=== PATIENT | female | born 1980 | race Caucasian/White ===

== ENCOUNTER 2021-08-11 08:26 | Day surgery (SDC) | payer OTHER ==
[~2021-08-11] VITALS: Ht 165.1 cm; Wt 124.8 kg
[~2021-08-11 08:26] MED LIST: ASPI-1450 PO; CHOL-35 PO; FOLI-130 PO; METH2.5 PO; METO-391 PO; OMEP20CA12 PO; PRED-549 PO; SODIUM CHLORIDE 0.9% 1,000 ML IV ONE
[2021-08-11] MEDS ORDERED: DIAZEPAM 5 MG TABLET PO ONE (09:00)
[2021-08-11] MEDS ORDERED: DiphenhydrAMINE HCL 50 MG CAPSULE PO ONE (09:00)
[2021-08-11] MEDS ORDERED: ASPIRIN 81 MG CHEWABLE TABLET PO ONE (09:00)
[2021-08-11] MEDS ORDERED: SODIUM CHLORIDE 0.9% 1,000 ML ONE (09:44)
[2021-08-11] MEDS ORDERED: ASPIRIN 81 MG CHEWABLE TABLET ONE (10:23)
[2021-08-11] MEDS ORDERED: DIAZEPAM 5 MG TABLET ONE (10:23)
[2021-08-11] MEDS ORDERED: DiphenhydrAMINE HCL 50 MG CAPSULE ONE (10:23)
[2021-08-11] MEDS ORDERED: IOHEXOL 300 MG/ML 50 ML VIAL ONE (12:08)
[2021-08-11] MEDS ORDERED: LIDOCAINE/PF 1% 30 ML VIAL ONE (12:08)
[2021-08-11] MEDS ORDERED: SODIUM BICARBONATE 50 MEQ/50 ML VIAL ONE (12:08)
[2021-08-11] MEDS ORDERED: IOHEXOL 300 MG/ML 150 ML VIAL ONE (12:08)
[2021-08-11] MEDS ORDERED: HEPARIN SODIUM 1000 UNITS/NS 1,000 ML ONE (12:08)
[2021-08-11] MEDS ORDERED: IOHEXOL 300 MG/ML 100 ML VIAL ONE (12:08)
[2021-08-11] MEDS ORDERED: FentaNYL CITRATE PF 100 MCG/2 ML VIAL ONE (13:07)
[2021-08-11] MEDS ORDERED: MIDAZOLAM HCL 2 MG/2 ML VIAL ONE (13:07)
[2021-08-11 13:11] VITALS: BP 127/66
[2021-08-11] MEDS ORDERED: IOHEXOL 300 MG/ML 150 ML VIAL IARTER ONE (13:30)
[2021-08-11] MEDS ORDERED: LIDOCAINE 1% 30 ML/SOD BICARB 8.4% 4 ML SQ ONE (13:30)
[2021-08-11] MEDS ORDERED: MIDAZOLAM HCL 2 MG/2 ML VIAL IVP ONE ×2 (13:30→14:00)
[2021-08-11] MEDS ORDERED: FentaNYL CITRATE PF 100 MCG/2 ML VIAL IVP ONE ×2 (13:30→13:45)
[2021-08-11] MEDS ORDERED: HEPARIN SODIUM 1000 UNITS/NS 1,000 ML IARTER ONE (13:30)
[2021-08-11] MEDS ORDERED: METOPROLOL TARTRATE 5 MG/5 ML VIAL ONE (13:39)
[2021-08-11] MEDS ORDERED: METOPROLOL TARTRATE 5 MG/5 ML VIAL IVP ONE (14:00)
[2021-08-11 14:04] VITALS: BP 106/64
== END 2021-08-11 17:35 | disposition home or self-care (01) ==
LOC: CATHLAB 08:26
PROVIDERS: ATTEND Internal Medicine Interventional Cardiology
DX: R94.39 Abnormal result of other cardiovascular function study (principal); I42.0 Dilated cardiomyopathy; E66.01 Morbid (severe) obesity due to excess calories; Z68.41 Body mass index [BMI] 40.0-44.9, adult; M33.20 Polymyositis, organ involvement unspecified; Z90.49 Acquired absence of other specified parts of digestive tract; Z79.899 Other long term (current) drug therapy; Z98.890 Other specified postprocedural states
CPT/HCPCS: 84703; 93005; 93458; 99152; C1760; J1644; J2250; J3010; J3490 ×3; J7030; Q9967 ×3